=== PATIENT | male | born 1970 | race Caucasian/White ===

== ENCOUNTER → 2021-09-13 | Outpatient (CLI) | payer OTHER | LOC: COL.VAS 09-12 14:45 | DX: E04.1 Nontoxic single thyroid nodule (principal); H47.012 Ischemic optic neuropathy, left eye ==

== ENCOUNTER → 2021-11-28 | Outpatient (CLI) | payer OTHER | LOC: COL.RAD 09:19 | DX: H47.20 Unspecified optic atrophy (principal) | CPT/HCPCS: A9575 ==

== ENCOUNTER → 2021-12-01 | Outpatient (CLI) | payer OTHER | LOC: COL.RAD 15:22 | DX: E04.1 Nontoxic single thyroid nodule (principal) ==